=== PATIENT | male | born 1975 | race Caucasian/White ===

== ENCOUNTER 2020-04-30 13:27 | Outpatient (CLI) | payer OTHER ==
--- NOTE | 2020-04-30 13:53 | SLEEP CARE CONSULTATION ---
Information from patient questionnaire entered by Ayanna Mcdonald. I have reviewed and concur with the information entered by Ayanna Mcdonald. This document represents the service I personally performed and the decisions made by me, Elizabeth Ferrari MD, [facility]. History of Present Illness Service Date and Time: 04/30/2020 1327 Reason for Visit: New patient Chief Complaint: reports: Observed pauses in breathing Date of Onset: 5 Years Usual bedtime: 9588-7490 Time it takes to fall asleep: 15-20 minutes Snores at night: Yes Observed to quit breathing while asleep: Yes Sleeps alone due to snoring: No Number of times waking at night: 3-7 Reasons for waking at night: reports: Gasping for air Recalls having dreams: No Usually gets out of bed at: 0500 Feels refreshed in the morning: Yes Morning headache: No Sleepy or fatigued during the day: Yes Ever fallen asleep while driving: No Takes day naps: Yes Dreams during day naps: No Prior sleep studies: No Additional HPI information: I had the pleasure of seeing Mr. Rivera today regarding the possibility of him having a sleep disorder. As you know, he is a 45 year old gentleman who complains of observed apneas. He says that his has been telling him about the pauses in his breathing at night for the past 5 years. He wakes up frequently, about 3 7 times a night. He is sleepy during the day. [place] Sleepiness Scale score is 12. Subjective Initial [place] Sleepiness Scale score: 13 Past Medical History Past Medical History: reports: GERD Social History The patient's occupation is a AM. Patient is and lives in [place]. Have you smoked in the past 12 months: No Alcohol use: No Caffeine use: Yes Caffeine amount and frequency: 12oz daily Family History Family history of sleep disordered breathing: Yes Family Hx Sleep Apnea: Mother: Snoring Allergies and Home Medications Drug allergies reviewed: Yes (NKDA) Home medication list reviewed: Yes (Omeprazole) Review of Systems Weight gain over past 5 years: 10 Cardiovascular: denies: high blood pressure, palpitations, chest pain, irregular heart rate or pulse, leg or foot swelling, have to sleep sitting up, other Respiratory: denies: shortness of breath, wheeze, sputum production, chronic cough, other Gastrointestinal: denies: heartburn, difficulty swallowing, nausea, vomitting, diarrhea, abdominal pain, other Urinary: denies: incontinence, frequency, urgency, impotence, other Neurological: denies: headaches, seizure, head trauma, disorientation, speech dysfunction, gait or balance problems, fainting or unconsciousness, other Psychiatric: denies: Attention Deficit Hyperactivity, anxiety, depression, mood disorder, claustrophobia, other Ear/Nose/Throat: reports: wisdom teeth removed Endocrine: denies: thyroid disease, history of goiter, sluggishness, too hot or cold, excessive thirst, increased appetite, increased urination, unexplained weakness, other Musculoskeletal: denies: joint pain, neck pain, back pain, joint swelling, muscle pain or cramping, mobility problems, other Immunologic: denies: sneezing, rash, itching, allergies to food or environment, other Physical Exam Vital signs obtained and entered by: Detailed physical exam was not performed to comply with COVID-19 precaution Height: 6 ft 1 in Weight: 220 lb Body Mass Index: 29.0 BMI Classification: Overweight Impression and Plan IMPRESSION: 1. Obstructive Sleep Apnea-Hypopnea Syndrome, as suggested by history of loud and irregular snoring, observed cessation of breath while asleep, frequent awakenings during the night, unrefreshed sleep, and daytime hypersomnolence. Pathophysiology of sleep-disordered breathing was discussed. I recommend proceeding to polysomnography to confirm the diagnosis and to assess severity. If he has significant sleep disordered breathing, a manual CPAP titration study will also be performed to find the optimal treatment pressure. I informed the patient of what the sleep studies involve and after some discussion, he agreed to proceed. Plan: 1. Schedule polysomnography + manual CPAP titration study 2. Avoid long distance driving or when feeling sleepy. 3. Avoid alcohol, sedative and muscle relaxant around bedtime. 4. Attempt to lose weight. 5. Return in 1 to 2 weeks after the study to discuss results and initiate therapy. Visit Type: In Office Provider Statement: I spent 100% of the Face to Face Visit with the patient with greater than 50% spent counseling the patient and coordination of care.
== END 2020-04-30 13:28 | disposition home or self-care (01) ==
LOC: SC 13:27
PROVIDERS: ATTEND Internal Medicine Pulmonary Disease
DX: R06.83 Snoring (principal); R06.81 Apnea, not elsewhere classified; G47.10 Hypersomnia, unspecified; G47.8 Other sleep disorders; E66.3 Overweight; Z68.29 Body mass index [BMI] 29.0-29.9, adult
CPT/HCPCS: 99203; 99212

== ENCOUNTER 2020-06-07 20:15 | Outpatient (CLI) | payer OTHER | END 2020-06-07 20:16 | disposition home or self-care (01) | LOC: SC 20:15 | PROVIDERS: ATTEND Internal Medicine Pulmonary Disease | DX: G47.33 Obstructive sleep apnea (adult) (pediatric) (principal); E66.3 Overweight; Z68.29 Body mass index [BMI] 29.0-29.9, adult | CPT/HCPCS: 95811 ==

== ENCOUNTER 2020-06-18 13:25 | Outpatient (CLI) | payer OTHER ==
--- NOTE | 2020-06-18 14:09 | SLEEP CARE CONSULTATION ---
Information from patient questionnaire entered by Deann Johnston. I have reviewed and concur with the information entered by Deann Johnston. This document represents the service I personally performed and the decisions made by me, Elizabeth Ferrari MD, [facility]. History of Present Illness Service Date and Time: 06/18/2020 1325 Initial [place] Sleepiness Scale score: 13 (in 2019 ) Current [place] Sleepiness Scale score: 15 Additional HPI information: HPI: Mr. Rivera returns for a follow up of the split-night sleep study he had on 06/07/2020. The polysomnography shows the following: The quality of the study is good. CPAP was initiated 150.9 minutes into the study and titrated up from 4 cmH2O and titrated up to CPAP at 9 cmH2O. DIAGNOSTIC: The patient had normal sleep efficiency. The sleep architecture was abnormal for sleep fragmentation and reduced amount of time spent in REM sleep. Respiratory monitoring showed severe obstructive sleep apnea-hypopnea (AHI = 46.1) associated with frequent arousals, oxyhemoglobin desaturation and mild hypoxia (birgit oxygen saturation of 86%). The respiratory events occurred more frequently during supine sleep. Snoring was moderate to loud in intensity. There was no significant periodic limb movement of sleep. THERAPEUTIC: CPAP at 7 cmH2O appeared to be optimal (AHI of 2.0 per hour on the pressure). There was supine REM sleep on the pressure. Oxygen saturation was normal throughout the night. Lower CPAP settings allowed a few residual respiratory events. The patient appeared to have tolerated positive airway pressure therapy very well using a Respironics Wisp nasal mask size large. The patients sleep efficiency was normal. The sleep architecture was relatively normal. There was no significant periodic limb movement of sleep. Cardiac rhythm was normal sinus rhythm without significant arrhythmia. No abnormal behavior (parasomnia) observed during the night. The patient was informed of these findings. I explained to him the pathophysiology behind obstructive sleep apnea. We then spent quite a bit of time discussing different treatment options. For mild obstructive sleep apnea, surgery and oral appliance are alternatives to nasal CPAP therapy but in moderate or severe cases, nasal CPAP is the most effective and reliable treatment. Weight loss in an obese individual is strongly recommended. After some discussion, he opted to go with the nasal CPAP therapy. I explained to him how CPAP machine works and what to expect when using the machine. He is encouraged to use CPAP every night especially in the first 2 to 3 nights in order to get used to it. He should call his CPAP supplier or me to discuss any mechanical problem that may occur. If he snores or feels like he is not getting enough air from the machine, he should notify me and I will increase the pressure. Sleep Study - Results Type of Sleep Study: Polysomnography Prior sleep studies: No Allergies and Home Medications Drug allergies reviewed: Yes Home medication list reviewed: Yes Review of Systems Review of systems same as previous: Yes Physical Exam Height: 6 ft 1 in Weight: 220 lb Body Mass Index: 29.0 BMI Classification: Overweight Impression and Plan IMPRESSION: 1. Obstructive Sleep Apnea-Hypopnea Syndrome, severe, associated with mild hypoxemia and sleep fragmentation. Obviously this is the cause of the patients symptoms of frequent awakenings, unrefreshed sleep, and excessive daytime sleepiness. As mentioned above, the patient will be started on an autoCPAP set at 5 - 10 cmH2O. I anticipate good treatment compliance. PLAN: 1. Prescription made for an autoCPAP, heated humidifier, and related supplies. 2. Attempt to lose weight and avoid alcohol consumption near bedtime. 3. The patient is again cautioned about driving until his sleepiness completely resolves on the CPAP therapy. 4. Return in six weeks for follow up. I will assess his response and compliance at that time. Visit Type: In Office Time Spent with Patient (minutes): 15 Provider Statement: I spent 100% of the Face to Face Visit with the patient with greater than 50% spent counseling the patient and coordination of care.
== END 2020-06-18 13:26 | disposition home or self-care (01) ==
LOC: SC 13:25
PROVIDERS: ATTEND Internal Medicine Pulmonary Disease
DX: G47.33 Obstructive sleep apnea (adult) (pediatric) (principal); E66.3 Overweight; Z68.29 Body mass index [BMI] 29.0-29.9, adult
CPT/HCPCS: 99212; 99213

== ENCOUNTER 2020-08-26 11:44 | Outpatient (CLI) | payer OTHER ==
--- NOTE | 2020-08-26 12:13 | SLEEP CARE CONSULTATION ---
Information from patient questionnaire entered by Deann Johnston. I have reviewed and concur with the information entered by Deann Johnston. This document represents the service I personally performed and the decisions made by , Laura Taylor ARNP. History of Present Illness Service Date and Time: 08/26/2020 1144 Previous diagnosis: Severe, Obstructive Sleep Apnea-Hypopnea Syndrome AHI: 46.1 (in 2019) Reason for follow up: first compliance Equipment type: CPAP Equipment obtained from: Other ([facility]: no issues so far) Mask style: Nasal Mask brand: Resmed Backup mask available: Yes (other mask) Last cushion change: 3 weeks ago Prior sleep studies: Yes Year and Where: 2019 - [facility] Type of Sleep Study: Polysomnography (Split-night) HPI additional information: [place] was diagnosed to have severe, AHI 46.1, obstructive sleep apnea- hypopnea syndrome and returned today for CPAP therapy first compliance follow- up. Sleep Study - Results Type of Sleep Study: Polysomnography Prior sleep studies: No CPAP Compliance Data - Data Reviewed with Patient Average duration of nightly device use: 7 hr 22 min Compliance rate %: 100 Current pressure setting (cmH2O): 5-10 Humidity settin Average residual AHI: 0.8 Central apnea: 0.2 Obstructive apnea: 0.5 Average large leak: 3.6 L/min Subjective Missed days of use due to: reports: other (power outage) Patient concerns: reports: other (start pressure 4 to low). denies: aerophagia, mask discomfort, air blowing in eyes, mask leak noise, condensation in mask/hose, nasal congestion, dry mouth, nose, throat, epistaxis Observed to snore while using device: No Current pressure setting perceived as: too low (at onset of Ramp; once gets to 5 cm H2O, it feels good) On therapy, patient: reports: sleeping better, awakening more refreshed, being more awake and alert during the day, more rested overall. denies: drowsiness while driving Initial [place] Sleepiness Scale score: 13 (in 2019 ) Current [place] Sleepiness Scale score: 4 Allergies and Home Medications Drug allergies reviewed: Yes (NKDA) Home medication list reviewed: Yes (no changes) Review of Systems Review of systems same as previous: Yes (no changes) Physical Exam Heart Rate: 106 O2 Saturation: 98 Height: 6 ft 1 in Weight: 245 lb Body Mass Index: 32.3 BMI Classification: Obese Impression and Plan 1. Obstructive Sleep Apnea-Hypopnea Syndrome, severe, with excellent treatment compliance and excellent apnea control. On CPAP therapy, the patient has better sleep quality and is more rested overall. He is really happy with the CPAP therapy. His only concern it that until the ramp pressure gets to 5 cmH2O he feels like he can't breathe with mask on. For his air hunger I will increase his ramp startup pressure to 5 cmH2O. I will leave his pressure range at the 5-10 cm H2O and he will follow up in 3 months. Patient's apnea severity and rationale for treatment to reduce apnea, improve sleep quality and reduce cardiovascular and cerebrovascular events was reviewed. I also reviewed the benefit of consistent device use of CPAP for gastric reflux/GERD]. * Continue auto CPAP pressure at 5-10 cmH2O * Changed Ramp startup pressure to 5 cm H2O to reduce air hunger * Notify me if snoring with mask or feeling that the pressure is too much or too little * Attempt to lose weight * Call this office if any problems using CPAP * Return for follow up in 3 months, or sooner if concerns arise Counseling Topics: Spare mask, Weight loss health impact Visit Type: In Office Time Spent with Patient (minutes): 16 Provider Statement: I spent 100% of the Face to Face Visit with the patient with greater than 50% spent counseling the patient and coordination of care.
== END 2020-08-26 11:45 | disposition home or self-care (01) ==
LOC: SC 11:44
PROVIDERS: ATTEND Nurse Practitioner Family
DX: G47.33 Obstructive sleep apnea (adult) (pediatric) (principal); E66.9 Obesity, unspecified; Z68.32 Body mass index [BMI] 32.0-32.9, adult
CPT/HCPCS: 99212; 99213

== ENCOUNTER 2020-11-25 12:54 | Outpatient (CLI) | payer OTHER ==
--- NOTE | 2020-11-25 13:46 | SLEEP CARE CONSULTATION ---
Information from patient questionnaire entered by Kim Bradshaw. I have reviewed and concur with the information entered by Kim Bradshaw. This document represents the service I personally performed and the decisions made by me, Elizabeth Ferrari MD, [facility]. History of Present Illness Service Date and Time: 11/25/2020 1254 Previous diagnosis: Severe, Obstructive Sleep Apnea-Hypopnea Syndrome AHI: 46.1 Reason for follow up: three month Equipment type: CPAP Equipment obtained from: Other ([facility]) Mask style: Nasal Backup mask available: No Prior sleep studies: No Year and Where: 2019 [facility] Type of Sleep Study: Polysomnography HPI additional information: HPI: Mr. Rivera was diagnosed to have severe obstructive sleep apnea-hypopnea syndrome and returns today for follow up of CPAP therapy. The patient purchased the device from [facility] and was fitted with a nasal mask. He uses the device nightly and all through the night. The compliance report shows that he uses the device 90 nights out of the past 90 nights, averaging 7.1 hours a night. He complains of no particular problem with the device such as soreness on the face, dry nose, epistaxis, nasal congestion or headache. He thinks that the pressure of 5 - 10 cmH2O is comfortable. On the CPAP therapy he notices improvement in his sleep quality, and that he wakes up feeling fresher in the morning and more awake/alert during the day. His notices no snore at all. [place] Sleepiness Scale score is 6. The average residual AHI is 0.7; and average time in large leak per day is 0 minutes a night. The 90th percentile pressure is 8.6 cmH2O. CPAP Compliance Data - Data Reviewed with Patient Average duration of nightly device use: 7 h 6 min Compliance rate %: 99 Current pressure setting (cmH2O): 5-10 Average residual AHI: 0.7 Subjective Current pressure setting perceived as: comfortable Initial [place] Sleepiness Scale score: 13 (in 2020 ) Current [place] Sleepiness Scale score: 6 Allergies and Home Medications Drug allergies reviewed: Yes Home medication list reviewed: Yes Review of Systems Review of systems same as previous: Yes Physical Exam Height: 6 ft 1 in Weight: 235 lb Body Mass Index: 30.9 BMI Classification: Obese Impression and Plan IMPRESSION: 1. Obstructive Sleep Apnea-Hypopnea Syndrome, severe, with the patient continuing to do well on nasal CPAP therapy. He has excellent compli ance and significant clinical benefits. The current pressure appears effective and comfortable. Overall, he is very satisfied with treatment and plans to continue with it long-term. No adjustment is necessary today. PLAN: 1. Continue with autoCPAP set at 5 - 10 cm H2O. 2. Try to lose weight 3. Return in one year for follow up or earlier if there is any problem with the treatment. Follow up recommended for: Weight management Visit Type: In Office Time Spent with Patient (minutes): 15 Provider Statement: I spent 100% of the Face to Face Visit with the patient with greater than 50% spent counseling the patient and coordination of care.
== END 2020-11-25 12:55 | disposition home or self-care (01) ==
LOC: SC 12:54
PROVIDERS: ATTEND Internal Medicine Pulmonary Disease
DX: G47.33 Obstructive sleep apnea (adult) (pediatric) (principal); E66.9 Obesity, unspecified; Z68.30 Body mass index [BMI] 30.0-30.9, adult
CPT/HCPCS: 99212